=== PATIENT | female | born 1975 | race Caucasian/White ===

== ENCOUNTER 2016-07-12 08:56 | Day surgery (SDC) | payer BC ==
[~2016-07-12 08:56] MED LIST: ALPRAZolam 0.5 MG TAB PO ONE; SODIUM BICARB 4% 5 ML VIAL (0.48 MEQ/ML) MISCELLANE PRN
[2016-07-12 09:34] VITALS: RESP 14; TEMP 98
[2016-07-12 10:24] LABS: Glucose,Whole Blood 280 mg/dL (75-99)
[2016-07-12 10:25] VITALS: BP 161/93; PULSE 113
--- NOTE | 2016-07-12 11:42 | US ---
ULTRASOUND GUIDED FNA THYROID BIOPSY: CLINICAL HISTORY: Enlarged left lymph node FINDINGS: The procedure was explained to the patient. The risks, complications, benefits and alternatives were discussed and any questions were answered. Informed consent was obtained. Patient was placed supin e on the ultrasound table and prepped and draped in the usual sterile fashion. Utilizing a 25 gauge needle, five passes were made into the enlarged left lymph node as requested. No sizable nodules see n on the right. Patient was stable throughout the procedure. Pathology is pending. All elements of maximal barrier technique were utilized. IMPRESSION: 1. Successful ultrasound guided FNA lymph node FNA biopsy.
== END 2016-07-12 10:26 | disposition home or self-care (01) ==
LOC: RADPROMAIN 08:56
PROVIDERS: ATTEND Otolaryngology
DX: R59.0 Localized enlarged lymph nodes (principal)
CPT/HCPCS: 10022; 76942; 88173; 88305

== ENCOUNTER 2024-01-26 14:46 | Inpatient (IN) | payer BC, OTHER ==
[2024-01-26 14:53] LABS: Glucose,Whole Blood 336 mg/dL (70-110)
--- NOTE | 2024-01-26 15:26 | ED ---
General Adult HPI - General Chief complaint: Recheck/Abnormal Lab/Rx Stated complaint: HTN, hyperglycemic, sent by PCP Time Seen by Provider: 01/26/24 15:03 Source: patient Mode of arrival: ambulatory Limitations: no limitations - History of Present Illness Initial comments: Patient is a pleasant 48-year-old female past medical history diabetes, CAD, Jesus boxone dependence presenting today for hyperglycemia at the direction of her PCP. Patient states that her symptoms have been ongoing for the last 2 months however seem to worsen since her cataract surgery 3 days ago. She describes intense anxiety and difficulty relaxing. Also describes hot flashes and flushing. Denies any illicit drug use and is obtaining her Suboxone as prescribed. Seen by her primary care provider today and noted to be hyperglycemic and nausea so sent to the emergency department. Patient denies of any episodes of emesis, vomiting, diarrhea, chest pain, shortness of breath. Does endorse dysuria. No fevers, no weakness. - Related Data Home Medications Medication Instructions Recorded Confirmed buPROPion HCL [Wellbutrin XL] 150 mg PO DAILY 06/28/16 01/26/24 Aspirin 81 mg PO DAILY 01/26/24 01/26/24 Atorvastatin [Lipitor] 40 mg PO HS 01/26/24 01/26/24 Budesonide/Formoterol Fumarate 2 puff INHALATION RT-BID PRN 01/26/24 01/26/24 [Symbicort 80-4.5 Mcg Inhaler] Buprenorphine-Nalox 8-2 mg Tab 0.5 tab SUBLINGUAL Q4H 01/26/24 01/26/24 [Suboxone 8-2 mg Tab] Cariprazine HCl [Vraylar] 3 mg PO W/SUPPER 01/26/24 01/26/24 Clopidogrel [Plavix] 75 mg PO HS 01/26/24 01/26/24 Fluticasone Nasal Jamul [Flonase 1 spr EA NOSTRIL HS PRN 01/26/24 01/26/24 Nasal Jamul] Ketorolac 0.5% Ophth Soln [Acular 1 drop LEFT EYE QID 01/26/24 01/26/24 0.5%] Metoprolol Succinate (ER) [Toprol 50 mg PO HS 01/26/24 01/26/24 XL] Ofloxacin 0.3% Ophth Soln [Ocuflox 1 drop LEFT EYE QID 01/26/24 01/26/24 Ophth Soln] Olmesartan Medoxomil 40 mg PO DAILY 01/26/24 01/26/24 Prednisolone Acetate/Pf 1 drop LEFT EYE Q4H 01/26/24 01/26/24 [Prednisolone Acet 1% Eye Drop] Pregabalin [Lyrica] 75 mg PO HS 01/26/24 01/26/24 Semaglutide [Ozempic] 1 mg SQ TU 01/26/24 01/26/24 Venlafaxine HCl [Effexor XR] 75 mg PO W/SUPPER 01/26/24 01/26/24 busPIRone HCL 15 mg PO TID 01/26/24 01/26/24 metFORMIN HCL 1,000 mg PO BID 01/26/24 01/26/24 Previous Rx's Medication Instructions Recorded Acetaminophen Tab [Tylenol] 650 mg PO Q6HR PRN tab 01/29/24 Insulin Detemir (Levemir) [Levemir] 25 unit SQ BID@0700,2100 30 Days 01/29/24 #7 each Allergies Allergy/AdvReac Type Severity Reaction Status Date / Time amoxicillin Allergy Dyspnea Verified 01/26/24 18:07 Cephalosporins Allergy Dyspnea Verified 01/26/24 18:07 Penicillins Allergy Rash/Hives Verified 01/26/24 18:07 Review of Systems ROS Statement: Those systems with pertinent positive or pertinent negative responses have been documented in the HPI. ROS Other: All systems not noted in ROS Statement are negative. Past Medical History Past Medical History: Diabetes Mellitus, Fibromyalgia, Hypertension, Skin Disorder Additional Past Medical History / Comment(s): septic in past x2 ->8 years, History of Any Multi-Drug Resistant Organisms: None Reported Past Surgical History: Section Additional Past Surgical History / Comment(s): cyst removed lt wrist, rt filop sharla tube removed. Past Anesthesia/Blood Transfusion Reactions: No Reported Reaction Past Psychological History: Anxiety, Depression, Panic Disorder - Past Family History Father Family Medical History: No Reported History General Exam - General Exam Comments Initial Comments: PE: CONSTITUTIONAL: No apparent distress, well appearing SKIN: Warm, flushed, dry, no jaundice, hives or petechiae EYES: Pupils are equally round, extraocular movements intact without nystagmus, clear conjunctiva, non-icteric sclera HENT: Normocephalic, atraumatic, moist mucus membranes, oropharynx clear without exudates NECK: , Full range of motion, normal appearance PULMONARY: Clear to auscultation without wheezes, rhonchi, or rales, normal e xcursion, no accessory muscle use and no stridor CARDIOVASCULAR: Tachycardia regular, rhythm, normal S1 and S2. No appreciated murmurs, rubs or gallops. Strong radial pulses with intact distal perfusion. No lower extremity edema GASTROINTESTINAL: Soft, non-tender, non-distended, no palpable masses, no rebound or guarding. No hepatosplenomegaly MUSCULOSKELETAL: Extremities have no gross deformity, no edema, redness, or swelling. No calf swelling NEUROLOGIC:_a/o x 3, GCS 15, normal mentation and speech. Moves all extremities x 4 without motor or sensory deficit PSYCHIATRIC:_anxious mood and affect, thought process is clear and linear Limitations: no limitations Course Vital Signs 01/26/24 01/26/24 01/26/24 14:49 17:30 18:42 Temperature 97.4 F L 97.9 F Pulse Rate 113 H 105 H 98 Respiratory 20 16 14 Rate Blood Pressure 166/93 115/78 114/82 O2 Sat by Pulse 97 64 L 97 Oximetry 01/26/24 20:37 Temperature Pulse Rate 94 Respiratory 18 Rate Blood Pressure 107/68 O2 Sat by Pulse 97 Oximetry EKG Findings - EKG Comments: EKG Findings:: Sinus tachycardia, rate 100 bpm, normal intervals, normal axis, no ST elevations or depressions Medical Decision Making - Medical Decision Making Was pt. sent in by a medical professional or institution ([facility], V BELT INSPECTOR, urgent care, hospital, or penitentiary...) When possible be specific @ Yes patient sent in by her primary care provider Did you speak to anyone other than the patient for history (EMS, parent, family, police, friend...)? What history was obtained from this source @ Spoke with patient's and daughter at bedside Did you review nursing and triage notes (agree or disagree)? Why? @ -I reviewed and agree with nursing and triage notes Were old charts reviewed (outside hosp., previous admission, EMS record, old EKG, old radiological studies, urgent care reports/EKG's, penitentiary records)? Report findings @ -No old charts were reviewed Differential Diagnosis (chest pain, altered mental status, abdominal pain women, abdominal pain men, vaginal bleeding, weakness, fever, dyspnea, syncope, he adache, dizziness, GI bleed, back pain, seizure, CVA, palpatations, mental health, musculoskeletal)? @ -Differential dx remains broad however top considerations include DKA, HHS, hyperglycemia, Thyrotoxicosis, hyperthyroidism, polysubstance use, medication side effect, allergic reaction EKG interpreted by me (3pts min.). @ -As above CT interpreted by me (1pt min.). @ -None done U/S interpreted by me (1pt. min.). @ -None done What testing was considered but not performed or refused? (CT, X-rays, U/S, labs)? Why? @ -None What meds were considered but not given or refused? Why? @ -Considered steroids in the instance that patient's symptoms 2/2 allergic reaction to recently prescribed medications post cataract surgery, however due to patient's anxiety, tachycardia and restlessness, I feel this would worsen patient's symptoms so this was withheld Did you discuss the management of the patient with other professionals (professionals i.e. , PA, V BELT INSPECTOR, lab, RT, psych nurse, social services director, training systems officer, teacher, assignment officer, senior case manager)? Give summary @ -No Was smoking cessation discussed for >3mins.? @ -No Was critical care preformed (if so, how long)? @ -No Were there social determinants of health that impacted care today? How? (Homelessness, low income, unemployed, alcoholism, drug addiction, transportation, low edu. Level, literacy, decrease access to med. care, correction, rehab)? @ -No Was there de-escalation of care discussed even if they declined (Discuss DNR or withdrawal of care, Hospice)? DNR status @ -No What co-morbidities impacted this encounter? (DM, HTN, Smoking, COPD, CAD, Cancer, CVA, ARF, Chemo, Hep., AIDS, mental health diagnosis, sleep apnea, morbid obesity)? @ -DM Was patient admitted / discharged? Hospital course, mention meds given and route, prescriptions, significant lab abnormalities, going to OR and other pertinent info. @ -Hospital course Patient is a pleasant 48-year-old female presenting today for hyperglycemia and nausea at the direction of her primary care provider. On initial assessment patient is anxious appearing, difficulty sitting still, flushed and tachycardic. Blood pressure 114/82. Plan for IV fluids, EKG, [id number] glucose, 1 mg Ativan, chest x-ray, PT, PTT, blood alcohol, CMP, troponin, CBC, UA, urinalysis, UDS, TSH with reflex free T4, magnesium, serum acetone level, lactic, VBG, free T3, D-dimer, patient does meet SIRS criteria so blood cultures x 2 were ordered however otherwise has no signs of infection on exam, so antibiotics held. VBG showed alkalosis, pH 7.51, pCO2 24, bicarb 19, sodium 133, chloride 97 magne sium 1.5, free T32.3, TSH 0.806. Urine with 4+ glucose but no ketones, no signs of infection on UA. Negative serum acetone CXR read as no acute cardiopulmonary process. I reviewed CXR and agree with radiologist interpretation, I see no cardiomegaly, masses, consolidations, effusions or pneumothorax or other acute process. Workup significant for hyperglycemia without DKA, hypomagnesemia. Replacement mag ordered. On reassessment patient was much more comfortable. Will keep for observation overnight due to patient not having primary care provider immediately available, it is a weekend and will have her follow-up, but may potentially need further testing in the morning. Patient agreeable with POC. Case was discussed with Dr. Bradford who agreed with and accepted patient for admission. Undiagnosed new problem with uncertain prognosis? @ -No Drug Therapy requiring intensive monitoring for toxicity (Heparin, Nitro, Insulin, Cardizem)? @ -No Were any procedures done? @ -No Diagnosis/symptom? @Hyperglycecmia, hypomagnesemia Acute, or Chronic, or Acute on Chronic? @ -Acute Uncomplicated (without systemic symptoms) or Complicated (systemic symptoms)? @ -[Complicated Side effects of treatment? @ -No Exacerbation, Progression, or Severe Exacerbation? @ -No - Lab Data Result diagrams: 01/29/24 04:54 01/29/24 04:54 Lab Results 01/26/24 01/26/24 01/26/24 Range/Units 14:51 15:46 15:46 WBC 8.8 (3.8-10.6) k/uL RBC 4.41 (3.80-5.40) m/uL Hgb 12.0 (11.4-16.0) gm/dL Hct 39.3 (34.0-46.0) % MCV 89.3 (80.0-100.0) fL MCH 27.3 (25.0-35.0) pg MCHC 30.6 L (31.0-37.0) g/dL RDW 14.7 (11.5-15.5) % Plt Count 278 (150-450) k/uL MPV 7.7 Neutrophils % 81 % Lymphocytes % 14 % Monocytes % 4 % Eosinophils % 0 % Basophils % 0 % Neutrophils # 7.1 (1.3-7.7) k/uL Lymphocytes # 1.2 (1.0-4.8) k/uL Monocytes # 0.4 (0-1.0) k/uL Eosinophils # 0.0 (0-0.7) k/uL Basophils # 0.0 (0-0.2) k/uL Hypochromasia Slight PT (10.0-12.5) sec INR (<1.2) APTT (22.0-30.0) sec D-Dimer (<0.60) mg/L FEU VBG pH (7.31-7.41) VBG pCO2 (37-51) mmHg VBG HCO3 (24-28) mmol/L Sodium (137-145) mmol/L Potassium (3.5-5.1) mmol/L Chloride (98-107) mmol/L Carbon Dioxide (22-30) mmol/L Anion Gap mmol/L BUN (7-17) mg/dL Creatinine (0.52-1.04) mg/dL Est GFR (CKD-EPI)AfAm (>60 ml/min/1.73 sqM) Est GFR (CKD-EPI)NonAf (>60 ml/min/1.73 sqM) Glucose (74-99) mg/dL POC Glucose (mg/dL) 336 H (70-110) mg/dL POC Glu Electronic Die Maker ID Marli Sanders Plasma Lactic Acid Cj (0.7-2.0) mmol/L Calcium (8.4-10.2) mg/dL Magnesium (1.6-2.3) mg/dL Total Bilirubin (0.2-1.3) mg/dL AST (14-36) U/L ALT (4-34) U/L Alkaline Phosphatase (38-126) U/L Troponin I (0.000-0.034) ng/mL Total Protein (6.3-8.2) g/dL Albumin (3.5-5.0) g/dL TSH (0.465-4.680) mIU/L Free T3 pg/mL (2.30-4.20) pg/mL Urine Color Colorless Urine Appearance Clear (Clear) Urine pH 5.5 (5.0-8.0) Ur Specific [place] 1.013 (1.001-1.035) Urine Protein Negative (Negative) Urine Glucose (UA) 4+ H (Negative) Urine Ketones Negative (Negative) Urine Blood Negative (Negative) Urine Nitrite Negative (Negative) Urine Bilirubin Negative (Negative) Urine Urobilinogen <2.0 (<2.0) mg/dL Ur Leukocyte Esterase Negative (Negative) Urine Opiates Screen Not Detected (NotDetected) Ur Oxycodone Screen Not Detected (NotDetected) Urine Methadone Screen Not Detected (NotDetected) Ur Barbiturates Screen Not Detected (NotDetected) U Tricyclic Antidepress Not Detected (NotDetected) Ur Phencyclidine Scrn Not Detected (NotDetected) Ur Amphetamines Screen Not Detected (NotDetected) U Methamphetamines Scrn Not Detected (NotDetected) U Benzodiazepines Scrn Not Detected (NotDetected) Urine Cocaine Screen Not Detected (NotDetected) U Marijuana (THC) Screen Not Detected (NotDetected) Serum Alcohol mg/dL Acetone, Qual (Negative) 01/26/24 01/26/24 01/26/24 Range/Units 15:46 15:46 15:46 WBC (3.8-10.6) k/uL RBC (3.80-5.40) m/uL Hgb (11.4-16.0) gm/dL Hct (34.0-46.0) % MCV (80.0-100.0) fL MCH (25.0-35.0) pg MCHC (31.0-37.0) g/dL RDW (11.5-15.5) % Plt Count (150-450) k/uL MPV Neutrophils % % Lymphocytes % % Monocytes % % Eosinophils % % Basophils % % Neutrophils # (1.3-7.7) k/uL Lymphocytes # (1.0-4.8) k/uL Monocytes # (0-1.0) k/uL Eosinophils # (0-0.7) k/uL Basophils # (0-0.2) k/uL Hypochromasia PT (10.0-12.5) sec INR (<1.2) APTT (22.0-30.0) sec D-Dimer (<0.60) mg/L FEU VBG pH (7.31-7.41) VBG pCO2 (37-51) mmHg VBG HCO3 (24-28) mmol/L Sodium 133 L (137-145) mmol/L Potassium 4.2 (3.5-5.1) mmol/L Chloride 97 L (98-107) mmol/L Carbon Dioxide 24 (22-30) mmol/L Anion Gap 12 mmol/L BUN 13 (7-17) mg/dL Creatinine 0.35 L (0.52-1.04) mg/dL Est GFR (CKD-EPI)AfAm >90 (>60 ml/min/1.73 sqM) Est GFR (CKD-EPI)NonAf >90 (>60 ml/min/1.73 sqM) Glucose 340 H (74-99) mg/dL POC Glucose (mg/dL) (70-110) mg/dL POC Glu Electronic Die Maker ID Plasma Lactic Acid Cj 1.9 (0.7-2.0) mmol/L Calcium 9.4 (8.4-10.2) mg/dL Magnesium 1.5 L (1.6-2.3) mg/dL Total Bilirubin 0.7 (0.2-1.3) mg/dL AST 25 (14-36) U/L ALT 27 (4-34) U/L Alkaline Phosphatase 65 (38-126) U/L Troponin I <0.012 (0.000-0.034) ng/mL Total Protein 7.2 (6.3-8.2) g/dL Albumin 4.3 (3.5-5.0) g/dL TSH 0.806 (0.465-4.680) mIU/L Free T3 pg/mL 2.30 (2.30-4.20) pg/mL Urine Color Urine Appearance (Clear) Urine pH (5.0-8.0) Ur Specific [place] (1.001-1.035) Urine Protein (Negative) Urine Glucose (UA) (Negative) Urine Ketones (Negative) Urine Blood (Negative) Urine Nitrite (Negative) Urine Bilirubin (Negative) Urine Urobilinogen (<2.0) mg/dL Ur Leukocyte Esterase (Negative) Urine Opiates Screen (NotDetected) Ur Oxycodone Screen (NotDetected) Urine Methadone Screen (NotDetected) Ur Barbiturates Screen (NotDetected) U Tricyclic Antidepress (NotDetected) Ur Phencyclidine Scrn (NotDetected) Ur Amphetamines Screen (NotDetected) U Methamphetamines Scrn (NotDetected) U Benzodiazepines Scrn (NotDetected) Urine Cocaine Screen (NotDetected) U Marijuana (THC) Screen (NotDetected) Serum Alcohol <10 mg/dL Acetone, Qual Negative (Negative) 01/26/24 01/26/24 01/26/24 Range/Units 15:46 17:09 17:16 WBC (3.8-10.6) k/uL RBC (3.80-5.40) m/uL Hgb (11.4-16.0) gm/dL Hct (34.0-46.0) % MCV (80.0-100.0) fL MCH (25.0-35.0) pg MCHC (31.0-37.0) g/dL RDW (11.5-15.5) % Plt Count (150-450) k/uL MPV Neutrophils % % Lymphocytes % % Monocytes % % Eosinophils % % Basophils % % Neutrophils # (1.3-7.7) k/uL Lymphocytes # (1.0-4.8) k/uL Monocytes # (0-1.0) k/uL Eosinophils # (0-0.7) k/uL Basophils # (0-0.2) k/uL Hypochromasia PT 10.8 (10.0-12.5) sec INR 1.0 (<1.2) APTT 25.4 (22.0-30.0) sec D-Dimer 0.27 (<0.60) mg/L FEU VBG pH 7.51 H (7.31-7.41) VBG pCO2 24 L (37-51) mmHg VBG HCO3 19 L (24-28) mmol/L Sodium (137-145) mmol/L Potassium (3.5-5.1) mmol/L Chloride (98-107) mmol/L Carbon Dioxide (22-30) mmol/L Anion Gap mmol/L BUN (7-17) mg/dL Creatinine (0.52-1.04) mg/dL Est GFR (CKD-EPI)AfAm (>60 ml/min/1.73 sqM) Est GFR (CKD-EPI)NonAf (>60 ml/min/1.73 sqM) Glucose (74-99) mg/dL POC Glucose (mg/dL) 312 H (70-110) mg/dL POC Glu Electronic Die Maker ID Vesta Sykes Plasma Lactic Acid Cj (0.7-2.0) mmol/L Calcium (8.4-10.2) mg/dL Magnesium (1.6-2.3) mg/dL Total Bilirubin (0.2-1.3) mg/dL AST (14-36) U/L ALT (4-34) U/L Alkaline Phosphatase (38-126) U/L Troponin I (0.000-0.034) ng/mL Total Protein (6.3-8.2) g/dL Albumin (3.5-5.0) g/dL TSH (0.465-4.680) mIU/L Free T3 pg/mL (2.30-4.20) pg/mL Urine Color Urine Appearance (Clear) Urine pH (5.0-8.0) Ur Specific [place] (1.001-1.035) Urine Protein (Negative) Urine Glucose (UA) (Negative) Urine Ketones (Negative) Urine Blood (Negative) Urine Nitrite (Negative) Urine Bilirubin (Negative) Urine Urobilinogen (<2.0) mg/dL Ur Leukocyte Esterase (Negative) Urine Opiates Screen (NotDetected) Ur Oxycodone Screen (NotDetected) Urine Methadone Screen (NotDetected) Ur Barbiturates Screen (NotDetected) U Tricyclic Antidepress (NotDetected) Ur Phencyclidine Scrn (NotDetected) Ur Amphetamines Screen (NotDetected) U Methamphetamines Scrn (NotDetected) U Benzodiazepines Scrn (NotDetected) Urine Cocaine Screen (NotDetected) U Marijuana (THC) Screen (NotDetected) Serum Alcohol mg/dL Acetone, Qual (Negative) Disposition Clinical Impression: Hyperglycemia, Hypomagnesemia Disposition: ADMITTED IP TO THIS HOSP
[2024-01-26] MEDS ORDERED: LORazepam 2 MG/ML INJ IV PRN (15:37)
[2024-01-26] MEDS: SODIUM CHLORIDE 0.9% 2,000 ML IV ONE (16:22)
[2024-01-26] MEDS: LORazepam 2 MG/ML INJ IV STA (16:22)
[2024-01-26 16:34] LABS: VBG PH 7.51 (7.31-7.41)
[2024-01-26 16:36] LABS: Appearance,Urine Clear (Clear); Bilirubin,Urine Negative (Negative); Blood,Urine Negative (Negative); Color,Urine Colorless; Glucose,Urine (UA) 4+ (Negative); Ketones,Urine Negative (Negative); Leukocyte Esterase,Urine Negative (Negative); Nitrite,Urine Negative (Negative); PH, Urine 5.5 (5.0-8.0); Protein,Urine Negative (Negative); Specific Gravity,Urine 1.013 (1.001-1.035); Urobilinogen,Urine <2.0 mg/dL (<2.0)
[2024-01-26 16:43] LABS: Amphetamine Screen,Urine Not Detected (NotDetected); Barbiturate Screen,Urine Not Detected (NotDetected); Benzodiazepines Screen,Urine Not Detected (NotDetected); Cocaine Screen,Urine Not Detected (NotDetected); Methadone Screen, Urine Not Detected (NotDetected); Opiate Screen,Urine Not Detected (NotDetected); Oxycodone Screen, Urine Not Detected (NotDetected); Phencyclidine Screen,Urine Not Detected (NotDetected); Tricyclic Antidepressant,Urine Not Detected (NotDetected); Urn Cannabinoid Scrn Not Detected (NotDetected)
[2024-01-26 16:46] LABS: Anion Gap 12 mmol/L; Blood Urea Nitrogen 13 mg/dL (7-17); Carbon Dioxide 24 mmol/L (22-30); Chloride 97 mmol/L (98-107); Glucose 340 mg/dL (74-99); Potassium 4.2 mmol/L (3.5-5.1); Sodium 133 mmol/L (137-145)
[2024-01-26 16:47] LABS: ALT 27 U/L (4-34); AST 25 U/L (14-36); African American GFR (CKD) >90 (>60 ml/min/1.73 sqM); Albumin 4.3 g/dL (3.5-5.0); Alcohol <10 mg/dL; Alkaline Phosphatase 65 U/L (38-126); Calcium 9.4 mg/dL (8.4-10.2); Magnesium 1.5 mg/dL (1.6-2.3); Non-African American GFR(CKD) >90 (>60 ml/min/1.73 sqM); Total Bilirubin 0.7 mg/dL (0.2-1.3); Total Protein 7.2 g/dL (6.3-8.2)
[2024-01-26 16:52] LABS: Basophils % (A) 0 %; Eosinophils % (A) 0 %; HCT 39.3 % (34.0-46.0); Hypochromasia Slight; Lymphocytes # (A) 1.2 k/uL (1.0-4.8); Lymphocytes % (A) 14 %; MCH 27.3 pg (25.0-35.0); MCHC 30.6 g/dL (31.0-37.0); MCV 89.3 fL (80.0-100.0); Mean Platelet Volume 7.7; Monocytes # (A) 0.4 k/uL (0-1.0); Monocytes % (A) 4 %; Neutrophils # (A) 7.1 k/uL (1.3-7.7); Neutrophils % (A) 81 %; Platelet Count 278 k/uL (150-450); RBC 4.41 m/uL (3.80-5.40); RDW 14.7 % (11.5-15.5); WBC 8.8 k/uL (3.8-10.6)
--- NOTE | 2024-01-26 16:55 | XR ---
EXAMINATION TYPE: XR chest 2V DATE OF EXAM: 01/26/2024 COMPARISON: NONE HISTORY: Shortness of breath TECHNIQUE: Frontal and lateral views of the chest are obtained. FINDINGS: Scattered senescent parenchymal changes noted. Hyperinflation compatible with COPD. No evidence for infiltrate. No evidence for atelectasis. Heart size is stable. Mediastinal structures are stable and grossly unremarkable. No evidence for hilar prominence. Degenerative changes dorsal spine. IMPRESSION: 1. No evidence for acute pulmonary disease.
[2024-01-26 17:17] LABS: Glucose,Whole Blood 312 mg/dL (70-110)
[2024-01-26] MEDS: MAGNESIUM SULFATE-D5W PMX 1 GM in DEXTROSE/WATER 1 100ML.BAG IVPB SCH (17:31)
[2024-01-26] MEDS: SODIUM CHLORIDE 0.9% 1,000 ML IV ONE (17:32)
[2024-01-26 17:48] LABS: Partial Thromboplastin Time 25.4 sec (22.0-30.0); Prothrombin Time 10.8 sec (10.0-12.5)
[2024-01-26] MEDS ORDERED: NALOXONE 0.4 MG/ML 1 ML VIAL IV PRN (18:35)
[2024-01-26] MEDS: SYMBICORT 80-4.5 MCG INHALER INHALATION SCH (19:42)
[2024-01-26] MEDS: prednisoLONE ACETATE 1% OPHTH DROPS 5 ML BTL LEFT EYE SCH (20:09)
[2024-01-26] MEDS: KETOROLAC 0.5% OPHTH DROPS 5 ML BTL LEFT EYE SCH (20:09)
[2024-01-26] MEDS: OFLOXACIN 0.3% OPHTH DROPS 5 ML BOTTLE LEFT EYE SCH (20:09)
[2024-01-26] MEDS: LOSARTAN 50 MG TAB PO SCH (20:30)
[2024-01-26] MEDS: ATORVASTATIN 40 MG TAB PO SCH (20:30)
[2024-01-26] MEDS: VENLAFAXINE HCL ER 75 MG CAP PO SCH (20:31)
[2024-01-26] MEDS: CLOPIDOGREL 75 MG TAB PO SCH (20:31)
[2024-01-26] MEDS: METOPROLOL SUCCINATE (ER) 50 MG TAB.ER.24H PO SCH (20:31)
[2024-01-26] MEDS: metFORMIN 500 MG TAB PO SCH (20:31)
[2024-01-26 20:57] LABS: Glucose,Whole Blood 291 mg/dL (70-110)
[2024-01-26] MEDS: busPIRone HCl 5 MG TAB PO SCH (21:50)
[2024-01-26] MEDS: PREGABALIN 75 MG CAP PO SCH (21:50)
[2024-01-26] MEDS: NON FORMULARY DRUG (Buprenorphine-Nalox 8-2 Mg Tab 1 EACH Tablet) SUBLINGUAL SCH ×2 (23:00→23:36)
[2024-01-26] MEDS: ACETAMINOPHEN TAB 325 MG TAB PO PRN (23:00)
[2024-01-26] MEDS: LORazepam 1 MG TAB PO PRN (23:13)
[2024-01-27] MEDS ORDERED: DEXTROSE 50% SYRINGE 50 ML IVP PRN ×2 (02:24)
--- NOTE | 2024-01-27 03:00 | HP ---
HISTORY AND PHYSICAL CHIEF COMPLAINT: Multiple symptomatologies including flushing, weakness, hyperglycemia, hypertension. HISTORY OF PRESENT ILLNESS: This is a 48-year-old woman with a past medical history of multiple medical problems, being followed by Dr. Sanchez. The patient recently had a cataract surgery on the left eye. The patient had multiple symptomatologies including flushing, hypertension as well as some anxiety and difficulty relaxing, and the patient came to [facility] at this time. Her labs are still pending. There is no history of fever, rigors, or chills at this time. PAST MEDICAL HISTORY: Reviewed, include diabetes mellitus type 2, fibromyalgia, hypertension. Rest of the history and rest of the chart is also reviewed. HOME MEDICATIONS: Reviewed, include metformin. Dose and rest of medications noted. ALLERGIES: Amoxicillin. FAMILY HISTORY: No history of heart disease or strokes in the family. SOCIAL HISTORY: No history of smoking or alcohol intake. REVIEW OF SYSTEMS: 14-point review of systems negative except as mentioned earlier. PHYSICAL EXAMINATION: VITAL SIGNS: Pulse is 113, blood pressure 160/93, respirations 20. HEENT: n NECK: No jugular venous distention. Obese. CARDIOVASCULAR: S1, S2. RESPIRATIONS: Breath sounds diminished at the bases. ABDOMEN: Soft, nontender. LEGS: No edema. mild facial flushing present. LABS: Pending. ASSESSMENT: 1. Flushing and tachycardia, hypertension, rule out thyrotoxicosis, acute presentation. 2. Rule out sepsis. 3. Possible anxiety. 4. History of recent left cataract surgery. 5. Diabetes mellitus type 2. 6. Fibromyalgia. 7. Hypertension. 8. Uncontrolled blood sugars. RECOMMENDATIONS AND DISCUSSION: This 48-year-old woman presented with multiple complex medical issues. We will monitor the patient closely. I would recommend to monitor blood sugars closely, and after insulin, if the sugars are not coming down, I would recommend insulin drip. The possibility of DKA is to be considered. Cultures will be obtained. Symptomatic treatment will be provided. Otherwise, home medications will be continued once they are confirmed. Prognosis guarded. Further recommendations to follow. See orders for further details. Discussed with family. MMODL / IJN: [id number] / MTDD
[2024-01-27 03:33] LABS: ALT 23 U/L (4-34); AST 23 U/L (14-36); African American GFR (CKD) >90 (>60 ml/min/1.73 sqM); Albumin 3.8 g/dL (3.5-5.0); Albumin/Globulin Ratio 1.5; Alkaline Phosphatase 54 U/L (38-126); Anion Gap 9 mmol/L; Blood Urea Nitrogen 14 mg/dL (7-17); Calcium 8.7 mg/dL (8.4-10.2); Carbon Dioxide 24 mmol/L (22-30); Chloride 101 mmol/L (98-107); Globulin 2.6 g/dL; Glucose 247 mg/dL (74-99); Magnesium 1.9 mg/dL (1.6-2.3); Non-African American GFR(CKD) >90 (>60 ml/min/1.73 sqM); Potassium 4.2 mmol/L (3.5-5.1); Sodium 134 mmol/L (137-145); Total Bilirubin 0.5 mg/dL (0.2-1.3); Total Protein 6.4 g/dL (6.3-8.2)
[2024-01-27 04:13] LABS: Basophils % (A) 0 %; Eosinophils # (A) 0.1 k/uL (0-0.7); Eosinophils % (A) 1 %; HCT 37.7 % (34.0-46.0); HGB 12.3 gm/dL (11.4-16.0); Hypochromasia Moderate; Lymphocytes # (A) 2.5 k/uL (1.0-4.8); Lymphocytes % (A) 31 %; MCH 29.4 pg (25.0-35.0); MCHC 32.5 g/dL (31.0-37.0); MCV 90.5 fL (80.0-100.0); Mean Platelet Volume 7.7; Monocytes # (A) 0.4 k/uL (0-1.0); Monocytes % (A) 5 %; Neutrophils % (A) 62 %; Platelet Count 290 k/uL (150-450); RBC 4.17 m/uL (3.80-5.40); RDW 15.2 % (11.5-15.5); WBC 8.1 k/uL (3.8-10.6)
[2024-01-27 07:08] LABS: Glucose,Whole Blood 323 mg/dL (70-110)
[2024-01-27] MEDS: ASPIRIN 81 MG PO SCH (08:23)
[2024-01-27] MEDS: INSULIN ASPART (NovoLOG) 100 UNIT/ML VIAL SQ SCH (08:23)
[2024-01-27] MEDS: buPROPion XL 150 MG TAB.ER.24H PO SCH (10:26)
[2024-01-27 12:17] LABS: Glucose,Whole Blood 301 mg/dL (70-110)
[2024-01-27] MEDS: INSULIN DETEMIR (LEVEMIR) 100 UNIT/ML SYR SQ SCH (15:11)
[2024-01-27] MEDS: NON FORMULARY DRUG (Cariprazine Hcl [Vraylar] 3 MG Capsule) PO SCH (16:45)
[2024-01-27 17:13] LABS: Glucose,Whole Blood 277 mg/dL (70-110)
[2024-01-27 20:03] LABS: Glucose,Whole Blood 277 mg/dL (70-110)
--- NOTE | 2024-01-28 03:54 | PN ---
PROGRESS NOTE DATE OF SERVICE: 01/27/2024 SUBJECTIVE: 48-year-old woman with multiple symptoms including flushing, weakness, hyperglycemia, hypertension, suspected to have sepsis. Patient is on empiric antibiotics. Cultures are pending at this time. The patient's sugar is also elevated. TSH and free T3 are normal. No chest pain. No palpitations. PHYSICAL EXAMINATION: VITAL SIGNS: Pulse is 98, blood pressure 112/62, respirations 15. CHEST: Clear to auscultation. ABDOMEN: Soft. GENERAL: Facial flushing is still present. LABORATORY DATA: Reviewed. ASSESSMENT: 1. Flushing, tachycardia, hypertension, rule out possible sepsis. 2. Anxiety. 3. History of recent left cataract surgery. 4. Diabetes mellitus, type 2, uncontrolled with hyperglycemia. 5. Fibromyalgia. 6. Hypertension. RECOMMENDATIONS AND DISCUSSION: Continue current management. Otherwise, we will initiate some Lantus insulin for better control and continue to monitor. The cultures are negative so far. Further recommendations to follow. Prognosis guarded. MMODL / IJN: [id number] / TERESA
[2024-01-28 07:15] LABS: Glucose,Whole Blood 317 mg/dL (70-110)
[2024-01-28 08:54] LABS: BUN/Creat Ratio 23.67 Ratio (12.00-20.00); Blood Urea Nitrogen 21.3 mg/dL (9.0-27.0); Chloride 98 mmol/L (96-109); Glucose 299 mg/dL (70-110); Potassium 4.1 mmol/L (3.5-5.5); Sodium 135 mmol/L (135-145)
[2024-01-28 08:55] LABS: ALT 20 U/L (8-44); AST 16 U/L (13-35); Albumin 3.9 g/dL (3.8-4.9); Albumin/Globulin Ratio 1.62 Ratio (1.60-3.17); Alkaline Phosphatase 62 U/L (41-126); Calcium 8.8 mg/dL (8.7-10.3); Carbon Dioxide 24.8 mmol/L (21.6-31.8); Globulin 2.4 g/dL (1.6-3.3); Total Bilirubin 0.3 mg/dL (0.3-1.2); Total Protein 6.3 g/dL (6.2-8.2)
[2024-01-28 09:25] LABS: Basophils # (A) 0.04 X 10*3/uL (0.00-0.10); Basophils % (A) 0.5 %; Eosinophils # (A) 0.18 X 10*3/uL (0.04-0.35); Eosinophils % (A) 2.2 %; HCT 36.2 % (37.2-46.3); HGB 11.4 g/dL (12.0-15.0); Lymphocytes # (A) 2.41 X 10*3/uL (0.90-5.00); Lymphocytes % (A) 29.1 %; MCH 28.6 pg (27.0-32.0); MCHC 31.5 g/dL (32.0-37.0); MCV 90.7 FL (80.0-97.0); Mean Platelet Volume 10.6 FL (9.5-12.2); Monocytes # (A) 0.67 X 10*3/uL (0.20-1.00); Monocytes % (A) 8.1 %; NRBC Per 100 WBC 0 X 10*3/uL (0.00-0.01); Neutrophils # (A) 4.96 X 10*3/uL (1.80-7.70); Neutrophils % (A) 59.9 %; Platelet Count 248 X 10*3/uL (140-440); RBC 3.99 X 10*6/uL (4.10-5.20); RDW 14.6 % (11.5-14.5); WBC 8.28 X 10*3/uL (4.50-10.00)
[2024-01-28 11:51] LABS: Glucose,Whole Blood 326 mg/dL (70-110)
[2024-01-28 17:01] LABS: Glucose,Whole Blood 259 mg/dL (70-110)
[2024-01-28] MEDS ORDERED: INSULIN ASPART (NovoLOG) 100 UNIT/ML VIAL SQ SCH ×3 (17:30)
[2024-01-28] MEDS: Cariprazine Hcl [Vraylar] 3 MG Capsule PO SCH (17:40)
[2024-01-28] MEDS: INSULIN ASPART (NovoLOG) 100 UNIT/ML VIAL SQ SCH (18:00)
[2024-01-28 20:17] LABS: Glucose,Whole Blood 290 mg/dL (70-110)
[2024-01-28] MEDS ORDERED: INSULIN DETEMIR (LEVEMIR) 100 UNIT/ML SYR SQ SCH (21:00)
[2024-01-28] MEDS: FLUTICASONE NASAL 50MCG/SPRAY 16GM BTL EA NOSTRIL PRN (21:08)
[2024-01-28] MEDS: INSULIN DETEMIR (LEVEMIR) 100 UNIT/ML SYR SQ SCH (21:08)
--- NOTE | 2024-01-28 22:21 | PN ---
PROGRESS NOTE DATE OF SERVICE: 01/28/2024 SUBJECTIVE: This is a 48-year-old woman who was admitted with flushing, tachycardia and hypertension, is being evaluated to rule out sepsis. The patient is on empiric antibiotics. The blood sugar is also uncontrolled. We have increased the dose of insulin. OBJECTIVE: VITAL SIGNS: Pulse is 90, blood pressure 158/74, respirations 18. HEENT: Conjunctivae normal. NECK: No JVD. CARDIOVASCULAR: S1, S2. RESPIRATIONS: Breath sounds diminished at the bases. ABDOMEN: Soft. NERVOUS SYSTEM: Nonfocal. LABORATORY DATA: Reviewed. ASSESSMENT: 1. Flushing, tachycardia, hypertension, rule out possible sepsis. 2. Diabetes mellitus, type 2, uncontrolled with hyperglycemia with no evidence of ketosis. 3. Anxiety. 4. History of recent left cataract surgery. 5. Fibromyalgia. 6. Hypertension. RECOMMENDATIONS: Recommend to continue current management and continue symptomatic treatment. Recommend to increase the dose of insulin Lantus to 25 subcu b.i.d. Further recommendations to follow. MMODL / IJN: [id number] /
[2024-01-29 07:16] LABS: Glucose,Whole Blood 197 mg/dL (70-110)
[2024-01-29] MEDS: NON FORMULARY DRUG (Semaglutide [Ozempic] 1 MG/0.75 ML Each) SQ SCH (08:08)
[2024-01-29 08:46] LABS: Basophils # (A) 0.03 X 10*3/uL (0.00-0.10); Basophils % (A) 0.4 %; Eosinophils % (A) 2.6 %; HCT 35.5 % (37.2-46.3); HGB 11.1 g/dL (12.0-15.0); Lymphocytes # (A) 2.51 X 10*3/uL (0.90-5.00); Lymphocytes % (A) 33.2 %; MCH 28.6 pg (27.0-32.0); MCHC 31.3 g/dL (32.0-37.0); MCV 91.5 FL (80.0-97.0); Mean Platelet Volume 10.5 FL (9.5-12.2); Monocytes # (A) 0.62 X 10*3/uL (0.20-1.00); Monocytes % (A) 8.2 %; NRBC Per 100 WBC 0 X 10*3/uL (0.00-0.01); Neutrophils # (A) 4.17 X 10*3/uL (1.80-7.70); Neutrophils % (A) 55.2 %; Platelet Count 249 X 10*3/uL (140-440); RBC 3.88 X 10*6/uL (4.10-5.20); RDW 14.6 % (11.5-14.5); WBC 7.56 X 10*3/uL (4.50-10.00)
[2024-01-29 09:01] LABS: ALT 22 U/L (8-44); AST 15 U/L (13-35); Albumin 3.9 g/dL (3.8-4.9); Albumin/Globulin Ratio 1.62 Ratio (1.60-3.17); Alkaline Phosphatase 60 U/L (41-126); Blood Urea Nitrogen 18.4 mg/dL (9.0-27.0); Calcium 8.8 mg/dL (8.7-10.3); Carbon Dioxide 26.3 mmol/L (21.6-31.8); Chloride 101 mmol/L (96-109); Globulin 2.4 g/dL (1.6-3.3); Glucose 202 mg/dL (70-110); Magnesium 1.9 mg/dL (1.5-2.4); Potassium 4.4 mmol/L (3.5-5.5); Sodium 138 mmol/L (135-145); Total Bilirubin 0.3 mg/dL (0.3-1.2); Total Protein 6.3 g/dL (6.2-8.2)
[2024-01-29 12:06] LABS: Glucose,Whole Blood 197 mg/dL (70-110)
[2024-01-29 13:19] VITALS: BMI 37.2
[2024-01-29 13:53] VITALS: BP 109/71; PULSE 89; RESP 18; TEMP 97.6
--- NOTE | 2024-01-29 14:03 | DS ---
DISCHARGE SUMMARY FINAL DIAGNOSES: 1. Flushing, tachycardia, hypertension, sepsis ruled out. 2. Diabetes mellitus type 2, uncontrolled with hyperglycemia with no evidence of ketosis. 3. Anxiety. 4. History of recent left cataract surgery. 5. Fibromyalgia. DISCHARGE DISPOSITION: The patient will be discharged in stable condition, guarded prognosis. HISTORY OF PRESENT ILLNESS: This is a 48-year-old woman with a past medical history, admitted with multiple symptoms of flushing, tachycardia, hypertension as well as significant blood sugar elevations. Sepsis suspected initially, but cultures are negative, so the antibiotics stopped. Blood sugars were elevated. I would recommend adding insulin to the current regimen and continued followup in the outpatient setting, so the patient was discharged in stable condition with guarded prognosis with Levemir 25 subcu b.i.d. and Tylenol, Accu-Cheks a.c. and h.s. Follow up with primary physician, Dr. Sanchez, and continue to monitor. See orders for further details. Continue rest of medications. MMODL / IJN: [id number] /
== END 2024-01-29 17:51 | disposition home or self-care (01) | DRG 638 ==
LOC: EC 14:46 → 5NMEDONC 18:35 → OBSVTOIN 18:36 → 5NMEDONC 20:16
PROVIDERS: ADMIT Hospitalist; ATTEND Hospitalist
DX: E11.65 Type 2 diabetes mellitus with hyperglycemia (principal); F11.20 Opioid dependence, uncomplicated; F41.9 Anxiety disorder, unspecified; I10 Essential (primary) hypertension; R00.0 Tachycardia, unspecified; I25.10 Atherosclerotic heart disease of native coronary artery without angina pectoris; F41.0 Panic disorder [episodic paroxysmal anxiety]; M79.7 Fibromyalgia; N95.1 Menopausal and female climacteric states; Z79.82 Long term (current) use of aspirin; Z79.84 Long term (current) use of oral hypoglycemic drugs; Z88.0 Allergy status to penicillin; Z28.21 Immunization not carried out because of patient refusal; Z79.51 Long term (current) use of inhaled steroids; Z79.899 Other long term (current) drug therapy; F32.A Depression, unspecified
CPT/HCPCS: 36415; 71046; 80053; 80306; 80320; 81003; 82009; 82803; 83036; 83605; 83735; 84443; 84481; 84484; 85025; 85379; 85610; 85730; 87040; 93005; 96365; 96366; 96375; 99285

== ENCOUNTER 2024-02-01 20:54 | Emergency (ER) | payer BC ==
[2024-02-01 21:05] VITALS: RESP 18; TEMP 97.6
[2024-02-01 21:39] LABS: Appearance,Urine Clear (Clear); Bacteria,Urine Occasional /hpf; Bilirubin,Urine Negative (Negative); Blood,Urine Negative (Negative); Color,Urine Colorless; Glucose,Urine (UA) Negative (Negative); Ketones,Urine Negative (Negative); Leukocyte Esterase,Urine Small (Negative); Nitrite,Urine Negative (Negative); PH, Urine 6.5 (5.0-8.0); Protein,Urine Negative (Negative); RBC,Urine <1 /hpf (0-5); Specific Gravity,Urine 1.007 (1.001-1.035); Squamous Epithelial Cell,Urine 1 /hpf (0-4); Urobilinogen,Urine <2.0 mg/dL (<2.0); WBC,Urine 6 /hpf (0-5)
--- NOTE | 2024-02-01 22:29 | ED ---
General Adult HPI - General Chief complaint: Dizziness Stated complaint: Dizziness,Chest Pain Time Seen by Provider: 02/01/24 21:50 Source: patient, family, RN notes reviewed, old records reviewed Mode of arrival: wheelchair Limitations: no limitations - History of Present Illness Initial comments: Patient is a 48-year-old female with past medical history remarkable for fibromyalgia, diabetes, hypertension who presents as a reevaluation for dizziness, shakiness, nausea. Also had 1 episode of chest pain that was fleeting earlier today that she describes more as palpitations. Symptoms have been ongoing since last week when she was admitted to the hospital for hypoglycemia. States symptoms have persisted. Presents for further evaluation at this time. Sugars have been within acceptable limits. Like to be reevaluated. Denies any obvious chest pain right now. Denies any shortness of breath, abdominal pain, nausea, vomiting. Does endorse the lightheadedness sensation. Complaining of some neck pain. Denies congestion or cough. Denies diarrhea. - Related Data Home Medications Medication Instructions Recorded Confirmed buPROPion HCL [Wellbutrin XL] 150 mg PO DAILY 06/28/16 01/26/24 Aspirin 81 mg PO DAILY 01/26/24 01/26/24 Atorvastatin [Lipitor] 40 mg PO HS 01/26/24 01/26/24 Budesonide/Formoterol Fumarate 2 puff INHALATION RT-BID PRN 01/26/24 01/26/24 [Symbicort 80-4.5 Mcg Inhaler] Buprenorphine-Nalox 8-2 mg Tab 0.5 tab SUBLINGUAL Q4H 01/26/24 01/26/24 [Suboxone 8-2 mg Tab] Cariprazine HCl [Vraylar] 3 mg PO W/SUPPER 01/26/24 01/26/24 Clopidogrel [Plavix] 75 mg PO HS 01/26/24 01/26/24 Fluticasone Nasal [place] [Flonase 1 spr EA NOSTRIL HS PRN 01/26/24 01/26/24 Nasal Thompson] Ketorolac 0.5% Ophth Soln [Acular 1 drop LEFT EYE QID 01/26/24 01/26/24 0.5%] Metoprolol Succinate (ER) [Toprol 50 mg PO HS 01/26/24 01/26/24 XL] Ofloxacin 0.3% Ophth Soln [Ocuflox 1 drop LEFT EYE QID 01/26/24 01/26/24 Ophth Soln] Olmesartan Medoxomil 40 mg PO DAILY 01/26/24 01/26/24 Prednisolone Acetate/Pf 1 drop LEFT EYE Q4H 01/26/24 01/26/24 [Prednisolone Acet 1% Eye Drop] Pregabalin [Lyrica] 75 mg PO HS 01/26/24 01/26/24 Semaglutide [Ozempic] 1 mg SQ TU 01/26/24 01/26/24 Venlafaxine HCl [Effexor XR] 75 mg PO W/SUPPER 01/26/24 01/26/24 busPIRone HCL 15 mg PO TID 01/26/24 01/26/24 metFORMIN HCL 1,000 mg PO BID 01/26/24 01/26/24 Previous Rx's Medication Instructions Recorded Acetaminophen Tab [Tylenol] 650 mg PO Q6HR PRN tab 01/29/24 Insulin Detemir (Levemir) [Levemir] 25 unit SQ BID@0700,2100 30 Days 01/29/24 #7 each LORazepam [Ativan] 0.5 mg PO BID PRN 3 Days #6 tab 02/02/24 Allergies Allergy/AdvReac Type Severity Reaction Status Date / Time amoxicillin Allergy Dyspnea Verified 02/01/24 21:05 Cephalosporins Allergy Dyspnea Verified 02/01/24 21:05 Penicillins Allergy Rash/Hives Verified 02/01/24 21:05 Review of Systems ROS Statement: Those systems with pertinent positive or pertinent negative responses have been documented in the HPI. Review of Systems: CONST: Denies fever EYES: Denies blurry vision ENT: Denies nasal congestion C/V: Denies Chest pain RESP: Denies shortness of breath GI: Denies abdominal pain : Denies dysuria SKIN: Denies rash. MSK: Endorses neck pain NEURO: Endorses headedness ROS Other: All systems not noted in ROS Statement are negative. Past Medical History Past Medical History: Diabetes Mellitus, Fibromyalgia, Hypertension, Skin Disorder Additional Past Medical History / Comment(s): septic in past x2 ->8 years, dermatographia History of Any Multi-Drug Resistant Organisms: None Reported Past Surgical History: Section Additional Past Surgical History / Comment(s): cyst removed lt wrist, rt fallopian tube and ovary removed due to ovarian cysts Past Anesthesia/Blood Transfusion Reactions: No Reported Reaction Past Psychological History: Anxiety, Depression, Panic Disorder Smoking Status: Former smoker Past Alcohol Use History: None Reported Past Drug Use History: None Reported - Past Family History Father Family Medical History: No Reported History General Exam - General Exam Comments Initial Comments: General: Appears in no acute distress. HEAD: Normal with no signs of head trauma. EYES: PERRLA, EOMI, conjunctiva normal, no discharge. Pupils are 3 mm and equal bilaterally. ENT: Hearing grossly intact, normal oropharynx. RESPIRATORY: Clear breath sounds bilaterally. No wheezes, rales, or rhonchi. C/V: Regular rate and rhythm. S1 and S2 auscultated, no edema, peripheral pulses 2+ and intact throughout ABD: Abd is soft, nontender, nondistended EXT: Normal range of motion, no obvious deformity. Mild paraspinal muscle tenderness to palpation of the neck. SKIN: No rashes or lesions observed on exposed skin. NEURO: Alert and oriented x 4. Cranial nerves II-XII intact. No focal sensory or strength deficits. GCS of 15. NIH is 0. Limitations: no limitations Course Vital Signs 02/01/24 02/02/24 02/02/24 21:03 00:47 01:56 Temperature 97.6 F Pulse Rate 94 93 90 Respiratory 18 18 18 Rate Blood Pressure 168/99 147/88 153/83 O2 Sat by Pulse 98 96 95 Oximetry Medical Decision Making - Medical Decision Making Was pt. sent in by a medical professional or institution (, PA, STOVE REFINISHER, urgent care, hospital, or halfway...) When possible be specific @ -No Did you speak to anyone other than the patient for history (EMS, parent, family, police, friend...)? What history was obtained from this source @ -No Did you review nursing and triage notes (agree or disagree)? Why? @ -I reviewed and agree with nursing and triage notes Were old charts reviewed (outside hosp., previous admission, EMS record, old EKG, old radiological studies, urgent care reports/EKG's, halfway records)? Report findings @ -Previous admission within the last week for similar complaints and charting from there including EKG which showed no dynamic changes when compared with EKG today. Differential Diagnosis (chest pain, altered mental status, abdominal pain women, abdominal pain men, vaginal bleeding, weakness, fever, dyspnea, syncope, headache, dizziness, GI bleed, back pain, seizure, CVA, palpatations, mental health, musculoskeletal)? @ -Differential Dizziness: Benign paroxysmal positional Vertigo, Menieres disease, otitis media, acoustic neuroma, vertebrobasilar insufficiency, cerebellar stroke, encephalitis, hypovolemic, arrhythmia, coronary artery syndrome, anemia, this is not meant to be an all-inclusive list EKG interpreted by me (3pts min.). @ -As above X-rays interpreted by me (1pt min.). @ -X-ray reveals no obvious acute cardiopulmonary process. CT interpreted by me (1pt min.). @ -CT brain and C-spine negative for any obvious traumatic injury. Patient C- spine does have osteophyte present which could be contributing to her intermittent pain. U/S interpreted by me (1pt. min.). @ -None done What testing was considered but not performed or refused? (CT, X-rays, U/S, labs)? Why? @ -None What meds were considered but not given or refused? Why? @ -None Did you discuss the management of the patient with other professionals (professionals i.e. , PA, STOVE REFINISHER, lab, RT, psych nurse, pediatric social worker, deicer repairer electric, teacher, mortgage loan officer originator, rifle case repairer)? Give summary @ -No Was smoking cessation discussed for >3mins.? @ -No Was critical care preformed (if so, how long)? @ -No Were there social determinants of health that impacted care today? How? (Homelessness, low income, unemployed, alcoholism, drug addiction, transportation, low edu. Level, literacy, decrease access to med. care, shelter, rehab)? @ -No Was there de-escalation of care discussed even if they declined (Discuss DNR or withdrawal of care, Hospice)? DNR status @ -No What co-morbidities impacted this encounter? (DM, HTN, Smoking, COPD, CAD, Cancer, CVA, ARF, Chemo, Hep., AIDS, mental health diagnosis, sleep apnea, mor bid obesity)? @ -Diabetes Was patient admitted / discharged? Hospital course, mention meds given and route, prescriptions, significant lab abnormalities, going to OR and other pertinent info. @ -Patient presents with what seems like lightheadedness, generalized bodyaches, neck pain, intermittent headaches, as well as 1 episode of palpitations/chest pain. Multiple complaints. Complaint seems similar to when she presented last week for similar complaints. Is requesting more workup. We will obtain CT imaging of the head and neck after discussion as well as generalized workup. Patient was in agreement this plan. She will be symptomatically treated with IV fluids, oral Valium, Antivert, and IV Protonix. EKG shows no signs of acute ischemia.Imaging unremarkable except for an osteophyte in the neck which could be contributing to her somewhat chronic back pain. Labs are all unremarkable including undetectable troponin. No evidence of DKA. On reevaluation, I did discuss results with the patient. She is still feeling very anxious. She will be given a dose of IV Ativan. And reevaluated. Following reevaluation, patient states symptoms have resolved. She feels improved. I do believe that anxiety is playing a role in her current symptoms. There is no laboratory studies or imaging findings to justify admission at this time. She was in agreement with plan for outpatient follow-up with her PCP. She will call tomorrow. I believe this is reasonable. I will provide the patient with a prescription for Ativan. I instructed the patient to follow up with their PCP in the next 1-3 days.. I explained that the patient should return to the emergency department if they experience any worsening symptoms. Strict return precautions were discussed with the patient. The patient expressed understanding of these instructions. I answered all questions that the patient had. The patient was discharged home in good condition with their prescriptions and follow up information. Undiagnosed new problem with uncertain prognosis? @ -No Drug Therapy requiring intensive monitoring for toxicity (Heparin, Nitro, Insulin, Cardizem)? @ -No Were any procedures done? @ -No Diagnosis/symptom? @ -Lightheadedness, anxiety Acute, or Chronic, or Acute on Chronic? @ -Acute Uncomplicated (without systemic symptoms) or Complicated (systemic symptoms)? @ -Complicated Side effects of treatment? @ -None Exacerbation, Progression, or Severe Exacerbation] @ -No Poses a threat to life or bodily function? @ -Unlikely - Lab Data Result diagrams: 02/01/24 22:37 02/01/24 22:37 Lab Results 02/01/24 02/01/24 02/01/24 Range/Units 21:10 22:37 22:37 WBC 7.9 (3.8-10.6) k/uL RBC 4.41 (3.80-5.40) m/uL Hgb 12.7 (11.4-16.0) gm/dL Hct 39.1 (34.0-46.0) % MCV 88.5 (80.0-100.0) fL MCH 28.8 (25.0-35.0) pg MCHC 32.6 (31.0-37.0) g/dL RDW 14.3 (11.5-15.5) % Plt Count 255 (150-450) k/uL MPV 7.7 Neutrophils % 65 % Lymphocytes % 27 % Monocytes % 5 % Eosinophils % 2 % Basophils % 0 % Neutrophils # 5.1 (1.3-7.7) k/uL Lymphocytes # 2.1 (1.0-4.8) k/uL Monocytes # 0.4 (0-1.0) k/uL Eosinophils # 0.1 (0-0.7) k/uL Basophils # 0.0 (0-0.2) k/uL Hypochromasia Slight PT (10.0-12.5) sec INR (<1.2) APTT (22.0-30.0) sec Sodium 137 (137-145) mmol/L Potassium 4.1 (3.5-5.1) mmol/L Chloride 99 (98-107) mmol/L Carbon Dioxide 26 (22-30) mmol/L Anion Gap 12 mmol/L BUN 16 (7-17) mg/dL Creatinine 0.51 L (0.52-1.04) mg/dL Est GFR (CKD-EPI)AfAm >90 (>60 ml/min/1.73 sqM) Est GFR (CKD-EPI)NonAf >90 (>60 ml/min/1.73 sqM) Glucose 154 H (74-99) mg/dL Plasma Lactic Acid Cj (0.7-2.0) mmol/L Calcium 9.8 (8.4-10.2) mg/dL Total Bilirubin 0.7 (0.2-1.3) mg/dL AST 23 (14-36) U/L ALT 23 (4-34) U/L Alkaline Phosphatase 60 (38-126) U/L Troponin I (0.000-0.034) ng/mL Total Protein 7.4 (6.3-8.2) g/dL Albumin 4.4 (3.5-5.0) g/dL Amylase 50 (30-110) U/L Lipase 152 (23-300) U/L Urine Color Colorless Urine Appearance Clear (Clear) Urine pH 6.5 (5.0-8.0) Ur Specific [place] 1.007 (1.001-1.035) Urine Protein Negative (Negative) Urine Glucose (UA) Negative (Negative) Urine Ketones Negative (Negative) Urine Blood Negative (Negative) Urine Nitrite Negative (Negative) Urine Bilirubin Negative (Negative) Urine Urobilinogen <2.0 (<2.0) mg/dL Ur Leukocyte Esterase Small H (Negative) Urine RBC <1 (0-5) /hpf Urine WBC 6 H (0-5) /hpf Ur Squamous Epith Cells 1 (0-4) /hpf Urine Bacteria Occasional H (None) /hpf Acetone, Qual Negative (Negative) Influenza Type A (PCR) (Not Detectd) Influenza Type B (PCR) (Not Detectd) RSV (PCR) (Not Detectd) SARS-CoV-2 (PCR) (Not Detectd) 02/01/24 02/01/24 02/01/24 Range/Units 22:37 22:37 22:37 WBC (3.8-10.6) k/uL RBC (3.80-5.40) m/uL Hgb (11.4-16.0) gm/dL Hct (34.0-46.0) % MCV (80.0-100.0) fL MCH (25.0-35.0) pg MCHC (31.0-37.0) g/dL RDW (11.5-15.5) % Plt Count (150-450) k/uL MPV Neutrophils % % Lymphocytes % % Monocytes % % Eosinophils % % Basophils % % Neutrophils # (1.3-7.7) k/uL Lymphocytes # (1.0-4.8) k/uL Monocytes # (0-1.0) k/uL Eosinophils # (0-0.7) k/uL Basophils # (0-0.2) k/uL Hypochromasia PT 10.3 (10.0-12.5) sec INR 0.9 (<1.2) APTT 28.0 (22.0-30.0) sec Sodium (137-145) mmol/L Potassium (3.5-5.1) mmol/L Chloride (98-107) mmol/L Carbon Dioxide (22-30) mmol/L Anion Gap mmol/L BUN (7-17) mg/dL Creatinine (0.52-1.04) mg/dL Est GFR (CKD-EPI)AfAm (>60 ml/min/1.73 sqM) Est GFR (CKD-EPI)NonAf (>60 ml/min/1.73 sqM) Glucose (74-99) mg/dL Plasma Lactic Acid Cj 1.4 (0.7-2.0) mmol/L Calcium (8.4-10.2) mg/dL Total Bilirubin (0.2-1.3) mg/dL AST (14-36) U/L ALT (4-34) U/L Alkaline Phosphatase (38-126) U/L Troponin I <0.012 (0.000-0.034) ng/mL Total Protein (6.3-8.2) g/dL Albumin (3.5-5.0) g/dL Amylase (30-110) U/L Lipase (23-300) U/L Urine Color Urine Appearance (Clear) Urine pH (5.0-8.0) Ur Specific [place] (1.001-1.035) Urine Protein (Negative) Urine Glucose (UA) (Negative) Urine Ketones (Negative) Urine Blood (Negative) Urine Nitrite (Negative) Urine Bilirubin (Negative) Urine Urobilinogen (<2.0) mg/dL Ur Leukocyte Esterase (Negative) Urine RBC (0-5) /hpf Urine WBC (0-5) /hpf Ur Squamous Epith Cells (0-4) /hpf Urine Bacteria (None) /hpf Acetone, Qual (Negative) Influenza Type A (PCR) (Not Detectd) Influenza Type B (PCR) (Not Detectd) RSV (PCR) (Not Detectd) SARS-CoV-2 (PCR) (Not Detectd) 02/01/24 Range/Units 22:38 WBC (3.8-10.6) k/uL RBC (3.80-5.40) m/uL Hgb (11.4-16.0) gm/dL Hct (34.0-46.0) % MCV (80.0-100.0) fL MCH (25.0-35.0) pg MCHC (31.0-37.0) g/dL RDW (11.5-15.5) % Plt Count (150-450) k/uL MPV Neutrophils % % Lymphocytes % % Monocytes % % Eosinophils % % Basophils % % Neutrophils # (1.3-7.7) k/uL Lymphocytes # (1.0-4.8) k/uL Monocytes # (0-1.0) k/uL Eosinophils # (0-0.7) k/uL Basophils # (0-0.2) k/uL Hypochromasia PT (10.0-12.5) sec INR (<1.2) APTT (22.0-30.0) sec Sodium (137-145) mmol/L Potassium (3.5-5.1) mmol/L Chloride (98-107) mmol/L Carbon Dioxide (22-30) mmol/L Anion Gap mmol/L BUN (7-17) mg/dL Creatinine (0.52-1.04) mg/dL Est GFR (CKD-EPI)AfAm (>60 ml/min/1.73 sqM) Est GFR (CKD-EPI)NonAf (>60 ml/min/1.73 sqM) Glucose (74-99) mg/dL Plasma Lactic Acid Cj (0.7-2.0) mmol/L Calcium (8.4-10.2) mg/dL Total Bilirubin (0.2-1.3) mg/dL AST (14-36) U/L ALT (4-34) U/L Alkaline Phosphatase (38-126) U/L Troponin I (0.000-0.034) ng/mL Total Protein (6.3-8.2) g/dL Albumin (3.5-5.0) g/dL Amylase (30-110) U/L Lipase (23-300) U/L Urine Color Urine Appearance (Clear) Urine pH (5.0-8.0) Ur Specific [place] (1.001-1.035) Urine Protein (Negative) Urine Glucose (UA) (Negative) Urine Ketones (Negative) Urine Blood (Negative) Urine Nitrite (Negative) Urine Bilirubin (Negative) Urine Urobilinogen (<2.0) mg/dL Ur Leukocyte Esterase (Negative) Urine RBC (0-5) /hpf Urine WBC (0-5) /hpf Ur Squamous Epith Cells (0-4) /hpf Urine Bacteria (None) /hpf Acetone, Qual (Negative) Influenza Type A (PCR) Not Detected (Not Detectd) Influenza Type B (PCR) Not Detected (Not Detectd) RSV (PCR) Not Detected (Not Detectd) SARS-CoV-2 (PCR) Not Detected (Not Detectd) - EKG Data -: EKG Interpreted by Me EKG Comments: 12-lead Electrocardiogram Interpretation Note EKG was reviewed and interpreted by myself. 12-lead ECG performed at 2100 is interpreted by me as revealing normal sinus rhythm at a rate of 95 beats per minute. [place] is normal. CO interval is 157 ms, QRS duration is 86 ms, QTc is 412 ms.. There were no ST or T wave abnormalities to suggest myocardial ischemia or injury. R wave progression across the precordium was satisfactory. By my interpretation this EKG is non-diagnostic for acute ischemia. With EKG from January 26, 2024. No obvious acute change. Disposition Clinical Impression: Lightheaded, Anxiety Disposition: HOME SELF-CARE Condition: Good Instructions (If sedation given, give patient instructions): Dizziness (ED) Prescriptions: LORazepam [Ativan] 0.5 mg PO BID PRN 3 Days #6 tab PRN Reason: Anxiety Is patient prescribed a controlled substance at d/c from ED?: Yes When asked, does pt state using other controlled substances?: Yes If prescribed controlled substance>3 days was MAPS reviewed?: Prescribed <3 Days Referrals: Remy Sanchez MD [Primary Care Provider] - 1-2 days Time of Disposition: 01:34
[2024-02-01] MEDS: SODIUM CHLORIDE 0.9% 500 ML 500 ML IV STA (22:38)
[2024-02-01] MEDS: MECLIZINE 12.5 MG TAB PO STA (22:40)
[2024-02-01] MEDS: diazePAM 2 MG TAB PO STA (22:40)
[2024-02-01] MEDS: PANTOPRAZOLE 40 MG/10 ML VIAL IVP STA (22:40)
[2024-02-01 23:00] LABS: Basophils % (A) 0 %; Eosinophils # (A) 0.1 k/uL (0-0.7); Eosinophils % (A) 2 %; HCT 39.1 % (34.0-46.0); HGB 12.7 gm/dL (11.4-16.0); Hypochromasia Slight; Lymphocytes # (A) 2.1 k/uL (1.0-4.8); Lymphocytes % (A) 27 %; MCH 28.8 pg (25.0-35.0); MCHC 32.6 g/dL (31.0-37.0); MCV 88.5 fL (80.0-100.0); Mean Platelet Volume 7.7; Monocytes # (A) 0.4 k/uL (0-1.0); Monocytes % (A) 5 %; Neutrophils # (A) 5.1 k/uL (1.3-7.7); Neutrophils % (A) 65 %; Platelet Count 255 k/uL (150-450); RBC 4.41 m/uL (3.80-5.40); RDW 14.3 % (11.5-15.5); WBC 7.9 k/uL (3.8-10.6)
[2024-02-01 23:08] LABS: INR 0.9 (<1.2); Prothrombin Time 10.3 sec (10.0-12.5)
[2024-02-01 23:25] LABS: ALT 23 U/L (4-34); AST 23 U/L (14-36); African American GFR (CKD) >90 (>60 ml/min/1.73 sqM); Albumin 4.4 g/dL (3.5-5.0); Alkaline Phosphatase 60 U/L (38-126); Amylase 50 U/L (30-110); Anion Gap 12 mmol/L; Blood Urea Nitrogen 16 mg/dL (7-17); Calcium 9.8 mg/dL (8.4-10.2); Carbon Dioxide 26 mmol/L (22-30); Chloride 99 mmol/L (98-107); Glucose 154 mg/dL (74-99); Lipase 152 U/L (23-300); Non-African American GFR(CKD) >90 (>60 ml/min/1.73 sqM); Potassium 4.1 mmol/L (3.5-5.1); Sodium 137 mmol/L (137-145); Total Bilirubin 0.7 mg/dL (0.2-1.3); Total Protein 7.4 g/dL (6.3-8.2)
--- NOTE | 2024-02-02 00:12 | XR ---
EXAM: XR Chest, 2 Views CLINICAL HISTORY: XR Reason: abdominal pain TECHNIQUE: Frontal and lateral views of the chest. COMPARISON: January 26, 2024 FINDINGS: Lungs: Unremarkable. No consolidation. Pleural space: Unremarkable. No pneumothorax. Heart: Unremarkable. No cardiomegaly. Mediastinum: Unremarkable. Normal mediastinal contour. Bones/joints: Mild degenerative changes throughout the mid to lower thoracic spine. No acute fracture. IMPRESSION: No acute findings in the chest.
--- NOTE | 2024-02-02 00:17 | CT ---
EXAM: CT Head Without Intravenous Contrast CLINICAL HISTORY: CT Reason: pain TECHNIQUE: Axial computed tomography images of the head/brain without intravenous contrast. CTDI is 45.2 mGy and DLP is 1101.5 mGy-cm. This CT exam was performed using one or more of the following dose reduction techniques: automated exposure control, adjustment of the mA and/or kV according to patient size, and/or use of iterative reconstruction technique. COMPARISON: No relevant prior studies available. FINDINGS: Brain: Unremarkable. No hemorrhage. No significant white matter disease. No edema. Ventricles: Unremarkable. No ventriculomegaly. Bones/joints: Unremarkable. No acute fracture. Soft tissues: Unremarkable. Sinuses: Unremarkable as visualized. No acute sinusitis. Mastoid air cells: Unremarkable as visualized. No mastoid effusion. IMPRESSION: Normal head/brain CT. EXAM: CT Cervical Spine Without Intravenous Contrast CLINICAL HISTORY: CT Reason: pain TECHNIQUE: Axial computed tomography images of the cervical spine without intravenous contrast. CTDI is 14.6 mGy and DLP is 441.3 mGy-cm. This CT exam was performed using one or more of the following dose reduction techniques: automated exposure control, adjustment of the mA and/or kV according to patient size, and/or use of iterative reconstruction technique. COMPARISON: No relevant prior studies available. FINDINGS: Vertebrae: Moderate osteophytosis of the atlantodental joint. The odontoid process is intact. Large anterior osteophyte measuring 1 cm thick bridging and fusing C5-T1. No acute fracture. Soft tissues: Unremarkable. DISCS/SPINAL CANAL/NEURAL FORAMINA: C2-C3: Mild degenerative disc disease. Mild spinal stenosis measuring 8 mm. C3-C4: Mild degenerative disc disease. Mild spinal stenosis measuring 9 mm. C4-C5: Moderate degenerative disc disease. No stenosis. C5-C6: Fused by large anterior osteophyte. No stenosis. C6-C7: Fused by large anterior osteophyte. No stenosis. C7-T1: Fused by large anterior osteophyte. No stenosis. IMPRESSION: 1. Large anterior osteophyte measuring 1 cm thick bridging and fusing C5- T1. 2. Mild to moderate multilevel degenerative disc disease and facet arthrosis throughout the cervical spine. No acute fracture or subluxation is seen.
[2024-02-02] MEDS: LORazepam 2 MG/ML INJ IV STA (00:49)
[2024-02-02 01:58] VITALS: BP 153/83; PULSE 90
== END 2024-02-02 01:58 | disposition home or self-care (01) ==
LOC: EC 20:54
DX: R42 Dizziness and giddiness (principal); F41.9 Anxiety disorder, unspecified; E11.9 Type 2 diabetes mellitus without complications; M25.78 Osteophyte, vertebrae; Z79.84 Long term (current) use of oral hypoglycemic drugs; Z79.899 Other long term (current) drug therapy; Z88.0 Allergy status to penicillin; Z88.1 Allergy status to other antibiotic agents; Z87.891 Personal history of nicotine dependence
CPT/HCPCS: 36415; 93005; 80053; 82150; 82009; 83605; 83690; 84484; 85025; 85610; 85730; 81001; 87636; 71046; 72125; 70450; 99284; 96374; 96375; 96361 ×2; J2470

== ENCOUNTER → 2024-03-26 | Outpatient (CLI) | payer BC | END | disposition home or self-care (01) | LOC: RADECHMAIN 07:21 | PROVIDERS: ATTEND Family Medicine | DX: R42 Dizziness and giddiness (principal); R00.2 Palpitations | CPT/HCPCS: 93270 ==